=== PATIENT | female | born 1980 | race Caucasian/White ===

== ENCOUNTER 2020-10-18 12:44 | Outpatient (CLI) | payer MEDICARE, MEDICAID ==
--- NOTE | 2020-10-18 13:33 | CT ---
EXAM: CT Chest WO Con PROVIDED CLINICAL HISTORY: Abnormal chest radiograph, weight loss COMPARISON: None FINDINGS: The heart, pericardium and great vessels are suboptimally evaluated in the absence of IV contrast mat erial but demonstrate an unremarkable unenhanced CT appearance. There is no evidence for thoracic lymph node enlargement with limitations due to lack of IV contrast. The airway appears patent and of normal caliber. The lungs are free of significant opacity. No pleural fluid, pleural thickening or pneumothorax apparent. The visualized portions of the upper abdomen demonstrate an unremarkable unenhanced CT appearance. The osseous structures demonstrate no concerning lytic or blastic lesions. IMPRESSION: No evidence for an acute process.
== END 2020-10-18 12:45 | disposition home or self-care (01) ==
LOC: BICCT 12:44
PROVIDERS: ATTEND Physician Assistant
DX: R91.8 Other nonspecific abnormal finding of lung field (principal)
CPT/HCPCS: 71250